=== PATIENT | male | born 1960 | race Caucasian/White ===

== ENCOUNTER 2019-04-26 16:05 | Inpatient (IN) | payer MEDICARE, OTHER ==
[~2019-04-26] VITALS: Ht 160 cm; Wt 44.1 kg
[2019-04-26] MEDS ORDERED: SOD CHLORIDE 0.9% 1,000 ML IV STA (16:13)
[2019-04-26] MEDS ORDERED: SODIUM CHLORIDE 0.9% 1L BAG IV* STA (16:33)
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
[2019-04-26] MEDS ORDERED: ALBU2.5V3 NEB (16:55)
[2019-04-26] MEDS ORDERED: ACET-141 PO (16:55)
[2019-04-26] MEDS ORDERED: AMLO5TAB4 PO (16:56)
[2019-04-26] MEDS ORDERED: CHOL400T10 PO (16:57)
[2019-04-26] MEDS ORDERED: TAMS-14 PO (16:57)
[2019-04-26] MEDS ORDERED: POLY17PO6 PO (16:58)
[2019-04-26] MEDS ORDERED: PANT40TA4 PO (16:58)
[2019-04-26] MEDS ORDERED: SENN-120 PO (16:59)
[2019-04-26] MEDS ORDERED: CEFEPIME 1GM/50 ML (PMX) 50 ML IVPB ONE (17:00)
[2019-04-26] MEDS ORDERED: ACETAMINOPHEN 650 MG SUPP PR ONE (17:00)
[2019-04-26 21:30] VITALS: PULSE 77; Ht 160 cm; Wt 44.1 kg
[2019-04-26] MEDS ORDERED: PHENYLephrine (100 MCG/ML) 10ML SYG IV PRN (21:30)
[2019-04-26] MEDS: TAMSULOSIN (SR) 0.4 MG CAP PO SCH (22:00)
[2019-04-26] MEDS ORDERED: ALBUTEROL/IPRATROPIUM (NEB) 3 ML AMP HHN PRN (22:00)
[2019-04-26] MEDS ORDERED: ONDANSETRON 4 MG INJ IV PRN (22:00)
[2019-04-26] MEDS ORDERED: ALBUTEROL 0.083% (NEB) 2.5 MG/3 ML AMP NEB PRN (22:00)
[2019-04-26] MEDS ORDERED: NACL 0.9% 3 ML SYG IV SCH (22:00)
[2019-04-26] MEDS ORDERED: ACETAMINOPHEN 325 MG TAB PO PRN (22:00)
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
[2019-04-26] MEDS ORDERED: MIDODRINE 5 MG TAB PO ONE (23:00)
[2019-04-26 23:57] VITALS: PULSE 73
[2019-04-27] VITALS (41 sets, daily range): BP systolic 72–134; BP diastolic 42–81; PULSE 58–80; RESP 16–31
[2019-04-27] MEDS: SOD CHLORIDE 0.9% 1,000 ML IV SCH ×2 (01:09→07:17)
[2019-04-27] MEDS ORDERED: LIDOCAINE 1% (MPF) 5 ML VIAL SC ONE ×2 (03:00→10:00)
[2019-04-27] MEDS ORDERED: PANTOPRAZOLE (EC) 40 MG TAB PO SCH (07:00)
[2019-04-27] MEDS ORDERED: CALCIUM GLUCONATE 10% 2 GM in DEXTROSE 5% 100 ML IVPB ONE (08:00)
[2019-04-27] MEDS: AMLODIPINE 5 MG TAB PO SCH (09:00)
[2019-04-27] MEDS ORDERED: CALCIUM GLUCONATE 10% 1 GM in DEXTROSE 5% 100 ML IVPB ONE (09:00)
[2019-04-27] MEDS ORDERED: CEFTRIAXONE 1 GM/50 ML (PMX) 50 ML IVPB SCH (09:00)
[2019-04-27] MEDS: POLYETHYLENE GLYCOL 17 GM PACKET PO SCH ×2 (09:07→20:12)
[2019-04-27] MEDS: CHOLECALCIFEROL 400 UNITS TAB PO SCH (09:07)
[2019-04-27] MEDS: LANSOPRAZOLE 30 MG CAP PO SCH (09:08)
[2019-04-27] MEDS: TAMSULOSIN (SR) 0.4 MG CAP PO SCH ×2 (09:08→20:13)
[2019-04-27] MEDS: HEPARIN 5,000 UNIT/1 ML VIAL SC SCH ×2 (09:14→20:28)
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
[2019-04-27] MEDS: LACTATED RINGER'S 1,000 ML IV SCH ×2 (11:19→23:20)
[2019-04-27] MEDS: CEFEPIME 1GM/50 ML (PMX) 50 ML IVPB SCH ×2 (11:25→20:13)
[2019-04-27] MEDS: SENNA TAB PO SCH (20:13)
[2019-04-28] VITALS (11 sets, daily range): BP systolic 111–135; BP diastolic 62–82; PULSE 66–88; RESP 18–20
[2019-04-28] MEDS: LACTATED RINGER'S 1,000 ML IV SCH (03:45)
[2019-04-28] MEDS: LANSOPRAZOLE 30 MG CAP PO SCH (06:01)
[2019-04-28] MEDS: CHOLECALCIFEROL 400 UNITS TAB PO SCH (08:41)
[2019-04-28] MEDS: TAMSULOSIN (SR) 0.4 MG CAP PO SCH ×2 (08:41→21:06)
[2019-04-28] MEDS: AMLODIPINE 5 MG TAB PO SCH (08:42)
[2019-04-28] MEDS: CEFEPIME 1GM/50 ML (PMX) 50 ML IVPB SCH (08:42)
[2019-04-28] MEDS: POLYETHYLENE GLYCOL 17 GM PACKET PO SCH ×2 (08:42→21:06)
[2019-04-28] MEDS: HEPARIN 5,000 UNIT/1 ML VIAL SC SCH ×2 (10:12→22:39)
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
[2019-04-28] MEDS ORDERED: CALCIUM GLUCONATE 10% 2 GM in DEXTROSE 5% 100 ML IVPB ONE (11:30)
[2019-04-28] MEDS: SENNA TAB PO SCH (21:06)
[2019-04-29] VITALS (10 sets, daily range): BP systolic 106–147; BP diastolic 58–84; PULSE 72–90; RESP 18–20
[2019-04-29] MEDS: LANSOPRAZOLE 30 MG CAP PO SCH (05:50)
[2019-04-29] MEDS ORDERED: LEVOFLOXACIN 500 MG TAB PO SCH (06:00)
[2019-04-29] MEDS: TAMSULOSIN (SR) 0.4 MG CAP PO SCH (08:12)
[2019-04-29] MEDS: POLYETHYLENE GLYCOL 17 GM PACKET PO SCH (08:12)
[2019-04-29] MEDS: CHOLECALCIFEROL 400 UNITS TAB PO SCH (08:12)
[2019-04-29] MEDS: AMLODIPINE 5 MG TAB PO SCH (08:12)
[2019-04-29] MEDS: HEPARIN 5,000 UNIT/1 ML VIAL SC SCH (08:19)
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
[2019-04-29] MEDS ORDERED: LEVO500T48 PO (11:38)
--- NOTE | 2019-04-29 11:40 | PDOCDIS ---
Discharge Instructions DIAGNOSIS Discharge Diagnosis 1. Sepsis secondary to UTI and PNA- resolved 2. Left lower pneumonia- resolving 3. UTI- treated 4. Acute on chronic encephalopathy, most likely toxic- resolved 5. Quadriplegia CONDITION [id number] Patient Condition: [id number] Stable HOME CARE INSTRUCTIONS: [id number] Diet Instructions: [id number] Regular FOLLOW UP/APPOINTMENTS Follow-up Plan 1. Follow up with your primary care physician in 1-2 weeks 2. Continue antibiotic course with last dose on 05/02 3. Continue all other medications as scheduled 4. If experiencing any concerning symptoms, please return to the nearest emergency department NORMAN HURTADO MD April 29, 2019 11:40
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
== END 2019-04-29 18:04 | DRG 871 ==
LOC: E/R 16:05 → 6WM 18:54 → ICU 21:17 → 6WM 04-27 19:30
PROVIDERS: ADMIT Internal Medicine; ATTEND Internal Medicine
PROC: 02HV33Z Insertion of Infusion Device into Superior Vena Cava, Percutaneous Approach (ICD-10-PCS; principal; 2019-04-27)
DX: A41.9 Sepsis, unspecified organism (principal); J18.9 Pneumonia, unspecified organism; G82.50 Quadriplegia, unspecified; G92 Toxic encephalopathy; Z68.1 Body mass index [BMI] 19.9 or less, adult; N39.0 Urinary tract infection, site not specified; N31.9 Neuromuscular dysfunction of bladder, unspecified; R13.10 Dysphagia, unspecified; M62.50 Muscle wasting and atrophy, not elsewhere classified, unspecified site; K21.9 Gastro-esophageal reflux disease without esophagitis; M19.90 Unspecified osteoarthritis, unspecified site; I10 Essential (primary) hypertension; R62.7 Adult failure to thrive; Z74.01 Bed confinement status; E86.0 Dehydration
CPT/HCPCS: 36415; 36569; 71045; 76937; 80053; 80061; 80069; 81001; 82962; 83036; 83605; 83690; 83735; 84443; 84484; 85025; 87081; 87086; 93005; 96374; J0610; J0692; J0696; J1644; J7030; J7120